=== PATIENT | male | born 1980 | race Caucasian/White ===

== ENCOUNTER 2022-08-15 13:17 | Outpatient (CLI) | payer BC, SELFPAY ==
[2022-08-15 13:39] VITALS: BMI 29.2
[2022-08-15 13:49] VITALS: BP 144/81; PULSE 75; RESP 18; O2SAT 97
[2022-08-15 14:05] VITALS: BP 132/86; PULSE 75; RESP 18; O2SAT 99
[2022-08-15 14:21] VITALS: BP 119/79; PULSE 66; RESP 19; O2SAT 94
[2022-08-15 14:24] LABS: Chloride 100 mmol/L (98-107); Potassium 4.3 mmoL/L (3.5-5.1); Sodium 140 mmol/L (136-145)
[2022-08-15 14:27] LABS: Anion Gap 13.3 mEq/L (5-15); Blood Urea Nitrogen 12 mg/dl (9-20); Carbon Dioxide 31 mmol/L (22.0-30.0); Creatinine Clearance Estimated 154 mL/min (50-200); Estimated Glomerular Filt Rate 107 ml/min (>60); GFR (African American) 129 ML/MIN (>60)
[2022-08-15 14:28] LABS: Glucose 98 mg/dl (74-100)
[2022-08-15 14:39] VITALS: BP 108/72; PULSE 59; RESP 17; O2SAT 95
== END 2022-08-15 15:05 | disposition home or self-care (01) ==
PROVIDERS: Visit Provider Internal Medicine
DX: R07.89 Other chest pain (principal)
CPT/HCPCS: 75574; 80048; Q9967